=== PATIENT | male | born 1945 | race American Indian/Alaskan Native ===

== ENCOUNTER 2021-03-30 07:41 | Day surgery (SDC) | payer MEDICARE ==
[2021-03-30] MEDS: SODIUM CHLORIDE 0.9% 500 ML 500 ML IV SCH ×2 (09:05→10:32)
[2021-03-30 09:06] LABS: Hemoglobin 13.7 gm/dl (11.8-15.2); Red Blood Count 4.29 M/mm3 (3.65-5.03)
[2021-03-30 09:07] LABS: Basophils % (Auto) 0.6 % (0.0-1.8); Eosinophils # (Auto) 0.2 K/mm3 (0.0-0.4); Eosinophils % (Auto) 2.9 % (0.0-4.3); Hematocrit 41.5 % (35.5-45.6); Lymphocytes % (Auto) 40.2 % (13.4-35.0); Mean Corpuscular HGB Conc 33 % (32-34); Mean Corpuscular Volume 97 fl (84-94); Monocytes # (Auto) 0.5 K/mm3 (0.0-0.8); Monocytes % (Auto) 6.8 % (0.0-7.3); Platelet Count 257 K/mm3 (140-440); Red Cell Distribution Width 14.2 % (13.2-15.2)
[2021-03-30 09:17] LABS: Calcium 9.7 mg/dL (8.4-10.2)
[2021-03-30] MEDS ORDERED: HEPARIN/NS 5000 UNIT/500ML 1,000 ML IR ONE (10:09)
[2021-03-30] MEDS ORDERED: NITROGLYCERIN SYRINGE 3 ML ONE (10:10)
[2021-03-30] MEDS ORDERED: VERAPAMIL 5 MG/2 ML INJ ONE (10:10)
[2021-03-30] MEDS ORDERED: fentaNYL 100 MCG/2 ML INJ ONE (10:10)
[2021-03-30] MEDS ORDERED: HEPARIN 10,000 UNITS/10 ML VIAL ONE (10:10)
[2021-03-30] MEDS ORDERED: LIDOCAINE (2%) 20 MG/1 ML VIAL 20 ML MDV INFILTRATI ONE ×2 (10:10→11:46)
[2021-03-30] MEDS ORDERED: MIDAZOLAM 2 MG/2 ML INJ ONE (10:10)
--- NOTE | 2021-03-30 10:58 | Electrocardiograph Report ---
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
[2021-03-30] MEDS ORDERED: POTASSIUM CHLORIDE 10 MEQ 10 MEQ/100 ML BAG IV ONE (11:00)
[2021-03-30] MEDS ORDERED: POTASSIUM CHLORIDE ER 20 MEQ TAB PO NR (12:28)
[2021-03-30] MEDS ORDERED: SODIUM CHLORIDE 0.9% 1000 ML 1,000 ML IV SCH (12:30)
[2021-03-30] MEDS ORDERED: traMADol 50 MG TAB PO PRN (12:30)
--- NOTE | 2021-03-30 12:30 | Discharge Summary ---
Short Stay Discharge Plan Activity: advance as tolerated Weight Bearing Status: Partial Weight Bearing Diet: low fat, low cholesterol, low salt Wound: keep clean and dry Special Instructions: smoking cessation, no heavy lifting (3 days) Follow up with: RG WAITE MD [Primary Care Provider] - 7 Days ZOILA ANGEL MD [Staff Physician] - 7 Days
--- NOTE | 2021-03-30 13:01 | Cardiac Catherization Report ---
DATE OF SERVICE: 03/30/2021 CARDIAC CATHETERIZATION REPORT REASON FOR PROCEDURE: The patient is a 75-year-old man with a history of mild aortic stenosis. Recently, an echocardiogram showed a marked increase in the transaortic mean gradient, suspicious for acute progression of aortic valve disease. He was referred for right and left heart catheterization for further assessment of his valvular stenosis. PROCEDURES: 1. Right heart catheterization. 2. Left heart catheterization. 3. Selective left and right coronary angiography. 4. Left ventricular angiography. 5. Sedation time start 11:43, end 12:04. DESCRIPTION OF PROCEDURE: The patient was prepped and draped in a sterile fashion after informed consent. The right femoral artery and vein were both entered using Seldinger technique, a 6-Mosotho sheath was placed in the artery and an 8-Mosotho sheath in the vein. A Medusa-Stephanie catheter was then advanced to the pulmonary artery position. Cardiac output was then measured using thermodilution method. A right Susie catheter was then used for left ventricular catheterization. Simultaneous right and left heart filling pressures were then measured. Following this, the Medusa-Stephanie was withdrawn, and right heart pressures recorded on pullback. Left ventricular angiography was then performed, using a hand injection with the right Susie catheter. The right Susie was then withdrawn across the aortic valve and transaortic valvular gradient was recorded. Finally, selective left and right coronary angiography was performed using the right Susie catheter and left Susie #4 catheter. The catheters were then removed, sheath removed and hemostasis achieved over the arterial site using an Angio-Seal device and over the venous site using manual compression. The patient was returned to the postprocedure unit in stable condition. There were no complications. FINDINGS: HEMODYNAMICS: The mean right atrial pressure was 12-15. Right ventricular pressure was 50/15. Pulmonary artery pressure was 40/25. The mean pulmonary artery wedge pressure was 20. Left ventricular end-diastolic pressure was 20. Cardiac output was calculated at 8.02 liters per minute. AORTIC STENOSIS: On pullback across the aortic valve, there was a transaortic dtkz-gw-duba gradient of 23. The mean gradient was 27.4. The calculated aortic valve area using the Gorlin equation was 1.39 square cm. CORONARY ANGIOGRAPHY: Left main coronary artery was angiographically normal. The left anterior descending artery and its diagonal branches contained mild luminal irregularities. A large ramus intermedius artery contained mild luminal irregularities. The circumflex artery and its obtuse marginal branches contained mild luminal irregularities. The right coronary artery was dominant and similarly contained mild luminal irregularities. CONCLUSION: 1. Zxzy-nb-rbmkqiqu aortic stenosis with a mean transaortic gradient of 27.4 mmHg. 2. Mild to moderate pulmonary hypertension. 3. No significant coronary artery disease, only mild luminal irregularities as reported above. 4. Left ventricular systolic function at the lower limits of normal, ejection fraction 50%. RECOMMENDATIONS: Risk factor modification, conservative management of aortic stenosis with a clinical followup and serial echocardiography. TID: [id number] RECEIPT: [id number] JOANNE/DEON/LEI ELDER
[2021-03-30 15:03] VITALS: BP 119/59
== END 2021-03-30 15:40 | disposition home or self-care (01) ==
LOC: CATHLABREC 07:41
PROVIDERS: ATTEND Internal Medicine Cardiovascular Disease
DX: I35.0 Nonrheumatic aortic (valve) stenosis (principal); I27.20 Pulmonary hypertension, unspecified; H40.9 Unspecified glaucoma; G62.9 Polyneuropathy, unspecified; E78.00 Pure hypercholesterolemia, unspecified; M19.90 Unspecified osteoarthritis, unspecified site; Z96.653 Presence of artificial knee joint, bilateral; Z88.2 Allergy status to sulfonamides; Z79.899 Other long term (current) drug therapy; Z79.82 Long term (current) use of aspirin; Z98.890 Other specified postprocedural states; Z98.49 Cataract extraction status, unspecified eye; Z85.46 Personal history of malignant neoplasm of prostate
CPT/HCPCS: 36415; 80048; 85025; 85610; 93005; 93010; 93460; 99156; C1760; C1894; J1644; J1815; J2250; J3010; J3480; J3490; J7040; Q9967